=== PATIENT | female | born 1975 | race Caucasian/White ===

== ENCOUNTER 2018-08-04 20:44 | Emergency (ER) | END 2018-08-05 00:45 | disposition home or self-care (01) ==

== ENCOUNTER 2019-10-04 11:28 | Emergency (ER) | payer OTHER ==
[~2019-10-04] VITALS: Ht 162.6 cm; Wt 58.9 kg
[~2019-10-04 11:28] MED LIST: CARB100T2 PO; CARB400T PO; FOLI-49 PO; LEVE10006 PO; LORA1TAB PO; NITR-58 PO; SERT50TA6 PO; ZONI100C66 PO
[2019-10-04 11:32] VITALS: BP 130/59; PULSE 67; RESP 18; Ht 162.6 cm; Wt 58.9 kg
== END 2019-10-04 15:22 | disposition home or self-care (01) ==
LOC: FTE 11:28
DX: R30.0 Dysuria (principal); R10.2 Pelvic and perineal pain
CPT/HCPCS: 81001; 81025; 87210; Z7502; 81003; 99284